=== PATIENT | female | born 1985 | race Caucasian/White ===

== ENCOUNTER 2019-07-16 03:01 | Inpatient (IN) | payer BC ==
[2019-07-16] VITALS (22 sets, daily range): BP systolic 84–167; BP diastolic 52–87; Ht 162.6 cm; Wt 70.8 kg
[~2019-07-16] VITALS: Ht 162.6 cm; Wt 70.8 kg
[2019-07-16] MEDS ORDERED: BUTALB-APAP-CA1 EACH (03:30)
[2019-07-16] MEDS ORDERED: OMEPRAZOLE40 MG PO (03:31)
[2019-07-16] MEDS ORDERED: PHENERGAN25 M1 PO (03:32)
[2019-07-16] MEDS ORDERED: ZOLOFT50 MG (03:42)
[2019-07-16] MEDS ORDERED: AMBIEN5 MG PO (03:44)
[2019-07-16 03:54] LABS: HEMATOCRIT 32.1 % (36.0-48.0); HEMOGLOBIN 9.9 g/dL (12-16); MCH 23.9 pg (26.0-34.0); MCHC 30.8 g/dL (31.0-37.0); MCV 77.5 fL (80.0-100.0); MEAN PLATELET VOLUME 11.1 fL (7.4-10.4); RBC 4.14 10x6/uL (4.00-5.40); RDW 13.9 % (11.5-14.5); WBC 8.5 10x3/uL (4.8-10.8)
--- NOTE | 2019-07-16 04:49 | NUR ---
LIVE MALE BABY @ 2489 PLACENTA @ [phone]
--- NOTE | 2019-07-16 06:16 | NUR ---
pt rec'd from recovery, AAO, rr even and unlabored, hrrr, bs clear and equal, moving all extremities, fundus firm u/u, lochia small, mickie pads changed and under pads changed, pitocin infusing via iv lh 18 site wnl, fontana to drainage, 350 ml emptied from chamber clear yellow urine. w/o c/o pain or discmfort. placed in arms, immediately to breast latching well.
--- NOTE | 2019-07-16 07:15 | NUR ---
kevin tapia rn to pt's room, then she requests this rn to room. upon entering pt's room, pt's perineum/gown/towels/chux and bed sheets, both bottom and top sheet noted to be saturated in blood and blood clots just under pts' buttocks/hips areas. fundus boggy, but massaged to firm, but at 1/u. upon inspection of perinuem/vaginal area, and with kevin tapia rn massaging fundus, 3-4 large, orange sized clots expressed, with steady stream of blood following massage. this rn to desk, phone call made to dr. rashid, who is not distribution transformer assembler today, but as received in report, dr. rashid will be following dr. barba's patients. report given to dr. rashid that pt has passed large clots, and continues to have steady stream of blood, and has entire chux/towels/sheets/linens saturated in blood, report to pt currently has 20 units pitocin infusing at 125 ml/hr. telephone order received to admininster lr 1000 ml bolus, and to administer methergine im x 1 now. srup x2, call light and phone within reach.
--- NOTE | 2019-07-16 07:40 | NUR ---
DR. SARGENT IN ROOM SPEAKING WITH PT REGARDING PLAN OF CARE. VERBAL ORDER RECEIVED TO ADMINISTER DILAUDID ELECTRICAL CONTACTS ADJUSTER, CYTOTEC, AND HEMABATE. DR. SARGENT PERFORMING VAGINAL EXAM, LARGE CLOT, APPROX SIZE OF ORANGE.
[2019-07-16 07:41] LABS: BACTERIA MODERATE /hpf (NEGATIVE); BILIRUBIN NEGATIVE (NEGATIVE); EPITHELIAL CELLS 0-5 /hpf (0-5); GLUCOSE NEGATIVE (NEGATIVE); KETONE MODERATE mg/dL (NEGATIVE); NITRITE NEGATIVE (NEGATIVE); RED CELLS - URINE 0-5 /hpf (0-5); UDS - AMPHET NEGATIVE QUAL (NEGATIVE); UDS - BARB POSITIVE QUAL (NEGATIVE); UDS - BENZO NEGATIVE QUAL (NEGATIVE); UDS - COCAINE NEGATIVE QUAL (NEGATIVE); UDS - OPIATE NEGATIVE QUAL (NEGATIVE); UDS - PCP NEGATIVE QUAL (NEGATIVE); UDS - THC NEGATIVE QUAL (NEGATIVE); UROBILINOGEN NORMAL (NORMAL); WHITE CELLS - URINE 0-5 /hpf (NEGATIVE)
--- NOTE | 2019-07-16 07:44 | NUR ---
DR. SARGENT ADMINISTERS 1000 MCG CYTOTEC ID.
[2019-07-16 07:45] LABS: BASOPHILS 0 % (0-2); EOSINOPHILS 0.2 % (0-7); IMMATURE GRANULOCYTES 0.3 % (0-5); MCH 23.5 pg (26.0-34.0); MCHC 30.1 g/dL (31.0-37.0); MEAN PLATELET VOLUME 11.4 fL (7.4-10.4); MONOCYTES 5.4 % (2-11); NEUTROPHILS 72.1 % (40-80); PLATELET COUNT 266 10x3/uL (130-400); RDW 13.9 % (11.5-14.5); WBC 9.1 10x3/uL (4.8-10.8)
[2019-07-16 07:46] LABS: HEMATOCRIT 25.6 % (36.0-48.0); HEMOGLOBIN 7.7 g/dL (12-16); RBC 3.28 10x6/uL (4.00-5.40)
--- NOTE | 2019-07-16 07:50 | NUR ---
DR. SARGENT CONTINUES TO BE AT BEDSIDE, DISCUSSING PLAN OF CARE WITH PT, MD WILL NOT GIVE HEMABATE AT THIS TIME, EXPLAINS TO PT SIDE EFFECTS OF UNCONTROLLABE DIARRHEA FOR ABOUT 4 HRS POST ADM.
--- NOTE | 2019-07-16 10:15 | NUR ---
dr. milian calls to unit, progress report given to md. h/h results given to , quantitative blood loss of [address] milian. pt now has small rubra lochia, no clots expressed. fundus firm, u/1. telephone order received to administer 2 units prbc's, to repeat h/h after second unit, and place 2 more units on hold. telephone order received to also administer methergine 0.2 mg po q8 hrs.
--- NOTE | 2019-07-16 10:45 | NUR ---
to pt's room, pt is requesting ice water, large [facility] mug of ice water served. fundus firm, u/1, small rubra lochia, no clots expressed. peripads x2 noted to have 10 ml's measured blood. pt is currently infant. fontana cath noted to have 100 ml's yellow urine in urometer. pt denies all other needs. pt states "i am starting to hurt a little", med adm record reviewed with pt. srup x 2, call light and phone within reach. sig other at bedside.
--- NOTE | 2019-07-16 11:35 | NUR ---
TO PT'S ROOM, PT IS INFANT, PT STATES "OH NO...I ACCIDENTALLY PULLED OUT MY IV". CATH NOTED TO BE INTACT. IV PITOCIN THEN CONNECTED TO EXISTING SL IN RIGHT WRIST, IV NOW INFUSING WITHOUT DIFFICULTY, NO REDNESS OR SWELLING NOTED TO IV SITE.
--- NOTE | 2019-07-16 14:10 | NUR ---
FIRST BAG OF PRBC'S VERIFIED WITH SECOND RN. BLOOD INFUSING TO LEFT AC AT 100 ML/HR. SIDE EFFECTS REVIEWED WITH PT. PT DENIES QUESTIONS.
[2019-07-16 14:44] LABS: BASOPHILS 0 % (0-2); EOSINOPHILS 0.1 % (0-7); HEMATOCRIT 20.7 % (36.0-48.0); IMMATURE GRANULOCYTES 0.3 % (0-5); LYMPHOCYTES 10.8 % (15-50); MCH 23.4 pg (26.0-34.0); MCV 78.1 fL (80.0-100.0); MEAN PLATELET VOLUME 11.1 fL (7.4-10.4); MONOCYTES 7.5 % (2-11); NEUTROPHILS 81.3 % (40-80); PLATELET COUNT 221 10x3/uL (130-400); RBC 2.65 10x6/uL (4.00-5.40); RDW 13.9 % (11.5-14.5); WBC 9.6 10x3/uL (4.8-10.8)
--- NOTE | 2019-07-16 15:00 | NUR ---
IV TO LEFT AC NOTED TO BE SLIGHTLY SWOLLEN, AND PT C/O TENDERNESS TO SITE. FLUSHES WITHOUT DIFFICULTY. IV THEN DC'D WITH CATH INTACT.
[2019-07-16 15:01] LABS: HEMOGLOBIN 6.2 g/dL (12-16)
--- NOTE | 2019-07-16 15:20 | NUR ---
20 G CATH TO LEFT FA SITED X 1 ATTEMPT BY Kelley GOODMAN RN. BLOOD CONTINUES TO INFUSE, RATE INCREASED TO 150 ML/HR ON PUMP.
--- NOTE | 2019-07-16 16:29 | MORECARE ---
CASE MANAGEMENT DISCHARGE SUMMARY PATIENT: LOIS HAIDER UNIT: [id number] ADM DATE: 07/16/19 AGE: 34 : 85 SEX: F ROOM/BED: D.1274 AUTHOR: BEREKET GUERRERO PHYSICIAN: REFERRING PHYSICIAN: KORY CONTRERAS MD DATE OF SERVICE: 07/16/19 Discharge Plan Patient Name: LOIS HAIDER [facility] [facility] 1985 Planned Disposition: Home Anticipated Discharge Date: 07/20/19 Discharge Date: Expected LOS: 4 Initial Reviewer: [email or web address] Initial Review Date: 07/16/2019 Generated: 07/16/19 5:29 pm Patient Name: LOIS HAIDER Page [phone] at 1621 All edits/amendments must be made on the electronic document DICTATION DATE: 07/16/191628 PROJECT FACILITATOR: KRISTINA 07/16/191628 RPT#: [id number] DC DATE: STATUS: ADM IN [facility] [address] [place] [address] END OF REPORT
--- NOTE | 2019-07-16 16:38 | MORECARE ---
CASE MANAGEMENT DISCHARGE SUMMARY PATIENT: LOIS HAIDER UNIT: [id number] ADM DATE: 07/16/19 AGE: 34 : 85 SEX: F ROOM/BED: D.1274 AUTHOR: BEREKET GUERRERO PHYSICIAN: REFERRING PHYSICIAN: KORY CONTRERAS MD DATE OF SERVICE: 07/16/19 Discharge Plan Patient Name: LOIS HAIDER [facility] [facility] 1985 Planned Disposition: Home Anticipated Discharge Date: 07/20/19 Discharge Date: Expected LOS: 4 Initial Reviewer: [email or web address] Initial Review Date: 07/16/2019 Generated: 07/16/19 5:38 pm Last DP export: 07/16/19 3:29 p Patient Name: LOIS HAIDER Page [phone] at 1638 All edits/amendments must be made on the electronic document DICTATION DATE: 07/16/19 1638 OSTEOLOGIST: KRISTINA 07/16/19 1638 RPT#: [id number] DC DATE: STATUS: ADM IN [facility] [address] [place] [address] END OF REPORT
--- NOTE | 2019-07-16 19:15 | NUR ---
SHIFT REPORT GIVEN TO 7 P SHIFT.
--- NOTE | 2019-07-16 19:20 | NUR ---
PATIENT SITTING UP IN BED INFANT. STATES PAIN 3 OUT OF 10. DENIES ANY NEEDS OR CONCERNS AT THIS TIME. BED IN LOWEST POSITION, SIDE RAILS UP X 2, C/L AND WATER WITHIN REACH.
--- NOTE | 2019-07-16 19:46 | NUR ---
2 ND UNIT OF PRBC'S COMPLETE. POST TRANSFUSION VITAL SIGNS DONE. PATIENT DENIES ANY NEEDS OR CONCERNS AT THIS TIME. BED IN LOWEST POSITION, SIDE RAILS UP X 2, C/L AND WATER WITHIN REACH.
--- NOTE | 2019-07-16 19:46 | NUR ---
TRANSFUSION COMPLETE. VS TAKEN.
--- NOTE | 2019-07-16 21:00 | NUR ---
PATIENT SITTING UP IN BED. ASSESSMENT AND VITAL SIGNS DONE AT THIS TIME. RESPIRATIONS AT EASE. LUNG SOUNDS CLEAR IN ALL STEWART. HEART REGULAR RATE AND RHYTHM. ABDOMEN SOFT, TENDER TO TOUCH. FUNDUS FIRM, 2 BELOW UMBILICUS, AND MIDLINE. SMALL AMOUNT OF LOCHIA NOTED TO KATIA PAD. NO CLOTS EXPRESSED WITH MASSAGE. KATIA PAD CHANGED. ABDOMINAL DRESSING INTACT, NO DRAINAGE NOTED TO DRESSING. GARCIA CATHETER INTACT DRAINING CLEAR YELLOW URINE TO GRAVITY. NO EDEMA NOTED TO EXTREMITIES. SCD'S TO BLE. SCD'S ON AND WORKING. IV TO R FA SALINE LOCKED. IV TO L FA INFUSING PITOCIN @ 125 ML/HR. NO REDNESS OR EDMEA NOTED TO SITES. PATIENT STATES PAIN LEVEL 3 OUT OF 10. EDUCATED PATIENT ON USE OF INCENTIVE SPIROMETER AND IMPORTANE OF COUGHING AND DEEP BREATHING. PATIENT DEMONSTRATED KNOWLEDGE OF USE. PATIENT DENIES ANY NEEDS OR CONCERNS AT THIS TIME. BED IN LOWEST POSTION, SIDE RAILS UP X 2, C/L AND WATER WITHIN REACH.
--- NOTE | 2019-07-16 22:54 | NUR ---
PATIENT SITTING UP IN BED INFANT. STATES PAIN 7 OUT OF 10. DILAUDID 2 MG ADMINISTERED SLOW IVP. PATIENT DENIES ANY FURTHER NEEDS. BED IN LOWEST POSITION, SIDE RAILS UP X 2, C/L AND WATER WITHIN REACH.
--- NOTE | 2019-07-16 23:22 | NUR ---
PATIENT SITTING UP IN BED HOLDING INFANT. ZOLOFT 50 MG ADMINISTERED PO. PATIENT DENIES ANY FURTHER NEEDS. BED IN LOWEST POSITION, SIDE RAILS UP X 2, C/L AND WATER WITHIN REACH.
[2019-07-17] VITALS (10 sets, daily range): BP systolic 113–156; BP diastolic 70–90
[2019-07-17 00:27] LABS: HEMATOCRIT 26.3 % (36.0-48.0); HEMOGLOBIN 8.4 g/dL (12-16); LYMPHOCYTES 11.7 % (15-50); MCH 24.4 pg (26.0-34.0); MCHC 31.9 g/dL (31.0-37.0); MCV 76.5 fL (80.0-100.0); MEAN PLATELET VOLUME 10.5 fL (7.4-10.4); NEUTROPHILS 78.5 % (40-80); PLATELET COUNT 194 10x3/uL (130-400); RBC 3.44 10x6/uL (4.00-5.40); RDW 13.7 % (11.5-14.5); WBC 9.1 10x3/uL (4.8-10.8)
--- NOTE | 2019-07-17 01:32 | NUR ---
PATIENT LYING IN BED WITH EYES CLOSED. RESPIRATIONS AT EASE. NO SIGNS OF DISTRESS NOTED. BED IN LOWEST POSITION, SIDE RAILS UP X 2, C/L AND WATER WITHIN REACH.
--- NOTE | 2019-07-17 01:40 | NUR ---
PAGED WITH IMEDIATE CALL BACK. LAB RESULTS REPORTED. NEW ORDERS RECEIVED TO TRANSFUSE 1 UNIT OF PRBC'S. ORDERS REPEATED AND VERIFIED.
--- NOTE | 2019-07-17 02:19 | NUR ---
PRE TRANSFUSION VITAL SIGNS TAKEN. PATIENT WRIST BAND AND UNIT OF BLOOD MATCHED AND WITNESSED BY MYSELF SABRINA CULLEN AND JOSÉ MIGUEL CULLEN.
--- NOTE | 2019-07-17 02:30 | NUR ---
3RD UNIT OF PRBC STARTED AT THIS TIME.
--- NOTE | 2019-07-17 02:30 | NUR ---
3RD UNIT OF PRBC'S INFUSING @ 30ML/HR.
--- NOTE | 2019-07-17 02:45 | NUR ---
3RD UNIT OF PRBC'S INCREASED TO 100 ML/HR
--- NOTE | 2019-07-17 02:54 | NUR ---
PATIENT SITTING UP IN BED INFANT. STATES PAIN 7 OUT OF 10. DILAUDID 2 MG ADMINISTERED SLOW IVP. PATIENT DENIES FURTHER NEEDS.
--- NOTE | 2019-07-17 03:05 | NUR ---
FUNDUS MASSAGED, 2 BELOW UMBILICUS AND MIDLINE. LOCHIA RUBRA WITH SMALL AMOUNT NOTED TO KATIA PAD. KATIA PAD CHANGED AT THIS TIME.
--- NOTE | 2019-07-17 03:35 | NUR ---
PRBC'S INFUSING @ 150 ML/HR
--- NOTE | 2019-07-17 03:35 | NUR ---
PATIENT SITTING UP IN BED USING INCENTIVE SPIROMETER. PRBC'S INCREASED TO 150 ML/HR. DENIES ANY ADVERSE REACTIONS FROM TRANSFUSION. STATES PAIN 3 OUT OF 10. DENIES ANY FURTHER NEEDS. BED IN LOWEST POSITION, SIDE RAILS UP X 2, C/L AND WATER WITHIN REACH.
--- NOTE | 2019-07-17 04:35 | NUR ---
PATIENT LYING IN BED WITH EYES CLOSED. EASILY AROUSED. DENIES PAIN AT THIS TIME. DENIES ANY ADVERSE REACTIONS TO TRANSFUSION. PRBC'S INCREASED TO 200 CC/HR. PATIENT DENIES ANY NEEDS. BED IN LOWEST POSITION, SIDE RAILS UP X 2, C/L AND WATER WITHIN REACH.
--- NOTE | 2019-07-17 05:00 | NUR ---
3 RD UNIT OF PRBC'S COMPLETE. PATINE DENIES ANY ADVERSE REACTIONS. VITAL SIGNS TAKEN. PATIENT DENIES PAIN. DENIES ANY FURTHER NEEDS. BED IN LOWEST POSITION, SODE RAILS UP X 2, C/L AND WATER WITHIN REACH.
--- NOTE | 2019-07-17 06:04 | NUR ---
PATIENT SITTING UP IN BED HOLDING INFANT. STATES PAIN 5 OUT OF 10. ENCOURAGED TO CHANGE POSITIONS. PATIENT DENIES ANY NEEDS AT THIS TIME. BED IN LOWWEST POSITION, SIDE RAILS UP X 2, C/L AND WATER WITHIN REACH.
[2019-07-17 07:14] LABS: RAPID PLASMA REAGIN Non Reactive (Non Reactive)
[2019-07-17 07:30] LABS: HEMATOCRIT 28.5 % (36.0-48.0); HEMOGLOBIN 9.5 g/dL (12-16); MCHC 33.3 g/dL (31.0-37.0); MCV 77.9 fL (80.0-100.0); MEAN PLATELET VOLUME 10.9 fL (7.4-10.4); RBC 3.66 10x6/uL (4.00-5.40); RDW 14.2 % (11.5-14.5); WBC 9.1 10x3/uL (4.8-10.8)
--- NOTE | 2019-07-17 07:34 | NUR ---
DR. SARGENT ON UNIT. DISCUSSED WITH HIM REPORTS OF PT CONCERNS REGARDING TAKING NARCOTICS FOR PAIN CONTROL. ORDERS REC'D, PER DR. SARGENT HE WILL DISCUSS WITH HER THIS AM ON ROUNDS. DR. SARGENT TO ROOM TO SEE PT.
--- NOTE | 2019-07-17 07:56 | NUR ---
SHIFT ASSESSMENT COMPLETED PER FLOWSHEET. B/P ELEVATED TO 156/90. C/O ABD AND INCISIONAL PAIN 08/14. TORADOL GIVEN PER ORDER. PT EXPRESSES CONCERN TAKING NARCOTICS D/T PAST HISTORY OF ADDICTION. STATES THAT SHE AND DR. SARGENT DISCUSSED WHEN HE ROUNDED ON HER THIS AM AND SHE IS AWARE TO POC AT THIS TIME. FUNDUS FIRM, MIDLINE AND U2. LOWER TRANSVERSE ABD INCISION, WELL APPROXIMATED WITH STERI-STRIPS IN PLACE, NO DRAINAGE NOTED. BOWEL SOUNDS PRESENT AND ACTIVE X4 QUADRANTS, STATES THAT SHE HAS NOT PASSED FLATUS. GARCIA DRAINING TO BEDSIDE DRAINAGE WITH CLEAR LIGHT YELLOW URINE IN UROMETER 425 MLS EMPTIED. REQUEST TO HAVE GARCIA REMOVED FOLLOWING ALLOWING TORADOL TIME TO HELP WITH PAIN. PIV SL. PERICARE DONE AND PADS CHANGED. FUNDUS FIRM MIDLINE AND U2 WITH SMALL AMT RUBRA LOCHIA, NO CLOTS NOTED. POC DISCUSSED, VERBALIZES UNDERSTANDING AND DENIES NEEDS AND QUESTIONS. ICE WATER AND REGULAR TRAY PROVIDED. INCENTIVE SPIROMETER DONE X10 WITH GOOD EFFORT. SCD'S ON BLE. WILL CONTINUE TO MONITOR. FOB AT BEDSIDE, SUPPORTIVE AND ATTENTIVE TO PT AND INFANT NEEDS. INFANT CURRENTLY IN FOB ARMS.
--- NOTE | 2019-07-17 08:34 | NUR ---
BF . PAIN 4-5, "MAINLY JUST CRAMPING RIGHT NOW SINCE I'M FEEDING." DENIES NEEDS. WILL CONTINUE TO MONITOR.
--- NOTE | 2019-07-17 09:16 | NUR ---
BONDING WITH INFANT. STATES THAT PAIN IS 5-6/10. STATES THAT SHE WANTS TO FEED INFANT THEN GET OOB. DENIES NEEDS AT THIS TIME. ICE PACK ALSO PROVIDED PER PT REQUEST.
--- NOTE | 2019-07-17 09:56 | NUR ---
GARCIA D/C'D WITH 380 MLS CLEAR LIGHT YELLOW URINE. UP TO BR, DENIES DIZZINESS. STEADY GAIT NOTED. PERICARE DONE PER PT. PADS AND PANTIES PROVIDED. GOWN AND LINEN CHANGED. AMBULATORY IN HUNT WITH SPOUSE. DENIES NEEDS. WILL CONTINUE TO MONITOR.
--- NOTE | 2019-07-17 14:31 | NUR ---
PAIN REASSESSMENT COMPLETED, 04/14. DENIES NEEDS. BONDING WITH IN ARMS.
--- NOTE | 2019-07-17 15:41 | NUR ---
VSS. FUNDUS FIRM, RIGHT SHIFT NOTED, 2/U, SMALL AMT RUBRA LOCHIA, NO CLOTS NOTED. PT STATES THAT SHE HAS NOT VOIDED SINCE GARCIA WAS D/C'D. UP TO BR, VOIDED 950 MLS IN HAT. PERICARE DONE PER PT. STEADY GAIT NOTED. ICE WATER PROVIDED. INFANT TO NBN PER PT REQUEST. ENCOURAGED TO REST. BED IN LOW POSITION WITH SRUPX2. CALL LIGHT AND PHONE WITHIN REACH. WILL CONTINUE TO MONITOR. FOB REMAINS IN ROOM, SUPPORTIVE AND ATTENTIVE TO PT AND INFANT NEEDS.
--- NOTE | 2019-07-17 16:04 | NUR ---
FUNDUS FOLLOWING VOID, FIRM MIDLINE AND U1 WITH SCANT RUBRA LOCHIA, NO CLOTS NOTED. DENIES NEEDS. WILL CONTINUE TO MONITOR.
--- NOTE | 2019-07-17 17:17 | NUR ---
ROUNDS MADE. PT RESTING QUIETLY WITH EYE CLOSED IN SEMI-FOWLERS POSITION. RESP REGULAR AND UNLABORED, NO S/S OF DISTRESS NOTED. BED IN LOW POSITION WITH SRUP X2. CALL LIGHT AND PHONE WITHIN REACH. FOB RESTING ON COUCH AT BEDSIDE.
--- NOTE | 2019-07-17 19:22 | NUR ---
PT IN BR, STATES SHE IS HAVING BM. REPORTS FEELING LIKE SHE HAS TEMP, SPOUSE STATES THAT HE CHECKED TEMP AND IT WAS 99.6 ORALLY. Kelley SALEH RN NOTIFIED.
--- NOTE | 2019-07-17 19:45 | NUR ---
ASSESSMENT PER FLOW SHEET, VS OBTAINED, SALINE LOCK IN LEFT WRIST INTACT WITH NO REDNESS OR EDEMA, FF, ML, U/1, LITE BLEEDING WITH NO CLOTS, BIKINI INC WITH STERI STRIPS INTACT WITH DRIED DRAINAGE NOTED, PT REPORTS HAVING LARGE BM AND QUITE A BIT OF FLATUS, STATES "I FEEL SO MUCH BETTER AFTER THAT", PT INST ON AND DEMONSTRATED I.S. WITH GOOD EFFORT, PT C/O "SORENESS IN ABD", WILL ADM TORADOL AND TYLENOL, FOB HOLDING INFANT AT THIS TIME
--- NOTE | 2019-07-17 20:01 | NUR ---
ADM TORADOL AND TYLENOL PER MD ORDERS, SEE EMAR, PT DENIES NEEDS, BE DIN LOW POSITION, SIDE RAILS X 2, CALL LIGHT IN REACH
--- NOTE | 2019-07-17 20:49 | NUR ---
PT HOLDING INFANT, ADM NEURONTIN AND ZOLOFT PER MD ORDERS, SEE EMAR, DENIES NEEDS, FOB AT BEDSIDE
--- NOTE | 2019-07-17 21:33 | NUR ---
PT HOLDING INFANT, RATES "SORENESS" 3/10, DENIES NEEDS AT THIS TIME, FOB AT BEDSIDE, DINNER TRAY REMOVED
--- NOTE | 2019-07-17 22:22 | NUR ---
PT , RATES "SORENESS" 2-3/, DENIES NEEDS AT THIS TIME, FOB ASLEEP ON COUCH
--- NOTE | 2019-07-18 00:25 | NUR ---
PT UP IN BR AT THIS TIME, INFORMED PT THAT I WILL JUST COME BACK TO DO VS WHEN I ADM MEDS AROUND 1:30, PT VERBALIZES UNDERSTANDING, DENIES NEEDS AT THIS TIME, IN OPEN CRIB CART AND FOB AWAKE ON COUCH
[2019-07-18 01:32] VITALS: BP 130/85
--- NOTE | 2019-07-18 01:32 | NUR ---
PT AWAKE, ADM TYLENOL AND TORADOL PO PER MD ORDERS, SEE EMAR, VS OBTAINED, PT DENIES FURTHER NEEDS, TO NSY VIA OPEN CRIB CART, FOB AT SIDE, FOR TEMP CHECK, FOB TAKES INFANT BACK TO ROOM VIA OPEN CRIB CART
--- NOTE | 2019-07-18 02:28 | NUR ---
PT RESTING WITH EYES CLOSED, RESP QUIET, NO DISTRESS NOTED, LEFT UNDISTURBED AT THIS TIME, IN OPEN CRIB CART AND FOB ASLEEP ON COUCH
[2019-07-18 04:29] VITALS: BP 117/70
--- NOTE | 2019-07-18 04:29 | NUR ---
PT RESTING WITH EYES CLOSED, AROUSES TO SOFT VERBAL STIMULATION, VS OBTAINED, ADM NEURONTIN PO PER MD ORDERS, SEE EMAR, PT RATES "SORENESS" 2-3/, PT DENIES FURTHER NEEDS
--- NOTE | 2019-07-18 06:20 | NUR ---
PT AWAKE, HOLDING INFANT, DENIES NEEDS AT THIS TIME, FOB ASLEEP ON COUCH
[2019-07-18 08:21] VITALS: BP 135/79
--- NOTE | 2019-07-18 08:21 | NUR ---
SHIFT ASSESSMENT COMPLETED PER FLOWSHEET. VSS. FUNDUS FIRM, MIDLINE AND U2 WITH SCANT RUBRA LOCHIA, NO CLOTS NOTED. C/O ABD AND INCISIONAL DISCOMFORT 06/14. TORADOL AND TYLENOL GIVEN PER ORDER AND PT REQUEST. ICE WATER PROVIDED. REPORTS THAT SHE IS VOIDING AND PASSING FLATUS WITHOUT DIFFICULTY. STATES THAT SHE HAD "BIG BM" LAST PM. LOWER TRANS VERSE ABD INCISION WELL APPROXIMATED, STERI-STRIPS INTACT, SMALL AMT DRIED DRAINAGE NOTED. INSTRUCTED ON INCISIONAL CARE, VERBALIZES UNDERSTANDING AND DENIES QUESTIONS. R FA AND L WRIST PIV'S D/C'D WITH TIP INTACT, BANDAIDS PLACED. INFANT RESTING IN OPEN CRIB AT BEDSIDE. BED IN LOW POSITION WITH SRUP X2. CALL LIGHT AND PHONE WITHIN REACH. WILL CONTINUE TO MONITOR. REFUSES SCD'S. EATING MORNING MEAL.
--- NOTE | 2019-07-18 09:11 | NUR ---
PAIN REASSESSMENT COMPLETED, 03/17, DENIES NEEDS. FOB AT BEDSIDE, SUPPORTIVE AND ATTENTIVE TO PT AND NEEDS. BED IN LOW POSITION WITH SRUP X2. CALL LIGHT AND PHONE WITHIN REACH. WILL CONTINUE TO MONITOR.
--- NOTE | 2019-07-18 09:56 | NUR ---
UP TO SHOWER. TOWELS PROVIDED. DENIES NEEDS. VERBALIZES UNDERSTANDING OF BR CALL LIGHT USED. WILL CONTINUE TO MONITOR.
--- NOTE | 2019-07-18 10:47 | NUR ---
DISCHARGE INSTRUCTIONS PROVIDED TO PT. PT PROVIDED WITH COPIES OF ALL D/C INSTRUCTIONS WELL APPT CARE FOR PP F/U ON 07/31/19. PRESCRIPTIONS PROVIDED TO PT. PFW PP INSTRUCTION HANDOUT, S[employer] YOUR LIFE HANDOUT, AND [employer] HANDOUT ALSO REVIEWED AND PROVIDED TO PT. SPOUSE PRESENT IN ROOM FOR TEACHING, VERBALIZES UNDERSTANDING AND DENIES QUESTIONS. IGNACION RN TO ROOM FOR D/C TEACHING.
--- NOTE | 2019-07-18 11:57 | NUR ---
OUT TO AWAITING VECHILE WITH IN W/C PER THIS RN.
[2019-07-19 10:10] LABS: UDSC - AMPHET Negative ng/mL (Cutoff=1000); UDSC - BARB Comment: (Cutoff=300); UDSC - BENZO Negative ng/mL (Cutoff=300); UDSC - COC Negative ng/mL (Cutoff=300); UDSC - METH Negative ng/mL (Cutoff=300); UDSC - OPIATES Negative ng/mL (Cutoff=300); UDSC - PCP Negative ng/mL (Cutoff=25); UDSC - PROPOXY Negative ng/mL (Cutoff=300); UDSC - THC Negative ng/mL (Cutoff=50)
--- NOTE | 2019-07-21 09:00 | MORECARE ---
CASE MANAGEMENT DISCHARGE SUMMARY PATIENT: LOIS HAIDER UNIT: [id number] ADM DATE: 07/16/19 AGE: 34 : 85 SEX: F ROOM/BED: D.1274 AUTHOR: BEREKET GUERRERO PHYSICIAN: REFERRING PHYSICIAN: KORY CONTRERAS MD DATE OF SERVICE: 07/21/19 Discharge Plan Patient Name: LOIS HAIDER [facility] [facility] 1985 Planned Disposition: Home Anticipated Discharge Date: 07/20/19 Discharge Date: 07/18/2019 Expected LOS: 4 Initial Reviewer: [email or web address] Initial Review Date: 07/16/2019 Generated: 07/21/19 9:59 am Last DP export: 07/16/19 3:38 p Patient Name: LOIS HAIDER Page [id number] at 0900 All edits/amendments must be made on the electronic document DICTATION DATE: 07/21/19 0859 DIESEL BUS MECHANIC: KRISTINA 07/21/19 0859 RPT#: [id number] DC DATE:07/18/19 STATUS: DIS IN [facility] [address] [place] [address] END OF REPORT
== END 2019-07-18 11:57 | disposition home or self-care (01) | DRG 785 ==
LOC: D.LDO 03:01 → D.LD 03:31
PROVIDERS: Obstetrics & Gynecology; Student in an Organized Health Care Education/Training Program; ADMIT Obstetrics & Gynecology; ATTEND Obstetrics & Gynecology
PROC: 0UB70ZZ Excision of Bilateral Fallopian Tubes, Open Approach (ICD-10-PCS; 2019-07-16)
PROC: 10D00Z1 Extraction of Products of Conception, Low, Open Approach (ICD-10-PCS; principal; 2019-07-16 04:09)
DX: O34.211 Maternal care for low transverse scar from previous cesarean delivery (principal); Z3A.38 38 weeks gestation of pregnancy; Z37.0 Single live birth; Z30.2 Encounter for sterilization